=== PATIENT | female | born 1955 | race Caucasian/White ===

== ENCOUNTER 2023-11-26 11:23 | Inpatient (IN) | payer BC ==
[~2023-11-26] VITALS: Ht 170.2 cm; Wt 67.3 kg
[2023-11-26 13:01] LABS: BASOPHILS % (AUTO) 0.3 % (0-1); EOSINOPHILS # (AUTO) 0.1 X10'3 (0-0.9); EOSINOPHILS % (AUTO) 1.2 % (0-6); HEMATOCRIT 27.6 % (35.0-45.0); HEMOGLOBIN 9.1 g/dl (12.0-16.0); LYMPHOCYTES # (AUTO) 0.6 X10'3 (1.1-4.8); LYMPHOCYTES % (AUTO) 10.2 % (21-51); MEAN CORPUSCULAR HEMOGLOBIN 33.1 PG (27.0-31.0); MEAN CORPUSCULAR HGB CONC 32.9 g/dL (33.0-36.5); MEAN CORPUSCULAR VOLUME 100.7 FL (78-98); MEAN PLATELET VOLUME 8.3 FL (7.4-10.4); MONOCYTES % (AUTO) 15.9 % (2-12); NEUTROPHILS # (AUTO) 4.6 X10'3 (1.8-7.7); NEUTROPHILS % (AUTO) 72.4 % (42-75); PLATELET COUNT 257 X10'3 (140-440); RED BLOOD COUNT 2.75 X10'6 (4.20-5.60); RED CELL DISTRIBUTION WIDTH 17.3 % (11.5-14.5); WHITE BLOOD COUNT 6.3 X10'3 (4.5-11.0)
[2023-11-26 13:21] LABS: ALANINE AMINOTRANSFERASE < 6 U/L (12-78); ALBUMIN 2.7 G/DL (3.4-5.0); ALBUMIN/GLOBULIN RATIO 0.7 (1.1-1.5); ALKALINE PHOSPHATASE 67 IU/L (46-116); ANION GAP 10 (8-16); ASPARTATE AMINO TRANSFERASE 17 U/L (10-37); BILIRUBIN,TOTAL 0.6 MG/DL (0.1-1.0); BLOOD UREA NITROGEN 11 MG/DL (7-18); BUN/CREATININE RATIO 28.2 (10.0-20.0); CALCIUM 8.3 MG/DL (8.5-10.1); CHLORIDE 107 MMOL/L (99-107); CREATININE 0.39 MG/DL (0.40-0.90); GLUCOSE 91 MG/DL (70-104); POTASSIUM 3.3 MMOL/L (3.5-5.1); SODIUM 141 MMOL/L (135-145); TOTAL CARBON DIOXIDE 24.1 MMOL/L (24-32); TOTAL PROTEIN 6.6 G/DL (6.4-8.2); eCRCL 132 ML/MIN; eGFR > 90 ML/MIN
[2023-11-26] MEDS: piperacillin/tazo 3.375gm/50ml 50 ML IV ONE (13:41)
[2023-11-26] MEDS: potassium Cl 20 mEq SR tablet PO STA (13:42)
[2023-11-26] MEDS: morphine 4 MG/ML inj SYRINge IV ONE ×2 (15:39→21:09)
[2023-11-26] MEDS: ondansetron/PF 4mg/2ml inj IV ONE (15:40)
[2023-11-26] MEDS ORDERED: magnesium 4gm in 100ml NS 100 ML IV PRN (15:50)
[2023-11-26] MEDS ORDERED: mag hydrox/Alum hydrox/simeth 30ml oral suspension PO PRN (15:50)
[2023-11-26] MEDS ORDERED: acetaminophen 325mg tablet PO PRN ×2 (15:50)
[2023-11-26] MEDS ORDERED: ondansetron/PF 4mg/2ml inj IV PRN (15:50)
[2023-11-26] MEDS ORDERED: potassium Cl 40MEQ/1/2NS 520ml 520 ML IV PRN (15:50)
[2023-11-26] MEDS ORDERED: bisacodyl 10mg suppository rectal RC PRN (15:50)
[2023-11-26] MEDS ORDERED: potassium Cl 20 mEq SR tablet PO PRN (15:50)
[2023-11-26] MEDS ORDERED: magnesium 2GM in 50ml NS 50 ML IV PRN (15:50)
[2023-11-26] MEDS: CefTRIAXone/D5W-Rocephin 1gm 50 ML IV ONE (16:54)
[2023-11-26] MEDS: normal saline 1000ml 1,000 ML IV SCH (16:54)
[2023-11-26 17:10] LABS: ANISOCYTOSIS 1+; PLATELET ESTIMATE NORMAL; POLYCHROMASIA 1+; TOTAL CELLS COUNTED 100
[2023-11-26] MEDS: lactulose 20gm/30ml cup PO SCH (20:00)
[2023-11-26] MEDS: docusate sod 100mg capsule PO SCH (20:00)
[2023-11-26] MEDS: HYDROcodone/acetaminophen 10/325mg tab PO PRN (20:00)
[2023-11-26] MEDS: K and/or MAG REPLACEMENT MC SCH (20:20)
[2023-11-26] MEDS: potassium Cl 20 mEq SR tablet PO PRN (21:03)
[2023-11-26] MEDS: LORazepam 2 mg/ml vial IV ONE (21:07)
[2023-11-26] MEDS: haloperidol lactate 5mg/ml inj IM ONE (23:10)
[2023-11-26] MEDS: ziprasidone IM 20mg inj **IM only IM PRN (23:42)
[2023-11-27] MEDS: haloperidol lactate 5mg/ml inj IM ONE (01:58)
[2023-11-27] MEDS: mineral oil 133ml enema RC SCH (08:00)
[2023-11-27] MEDS: CefTRIAXone/D5W-Rocephin 1gm 50 ML IV SCH (08:14)
[2023-11-27 08:26] LABS: BASOPHILS % (AUTO) 0.5 % (0-1); EOSINOPHILS # (AUTO) 0.1 X10'3 (0-0.9); EOSINOPHILS % (AUTO) 1.8 % (0-6); HEMATOCRIT 24.9 % (35.0-45.0); HEMOGLOBIN 8.2 g/dl (12.0-16.0); LYMPHOCYTES # (AUTO) 0.6 X10'3 (1.1-4.8); LYMPHOCYTES % (AUTO) 13.4 % (21-51); MEAN CORPUSCULAR HGB CONC 32.9 g/dL (33.0-36.5); MEAN CORPUSCULAR VOLUME 100.4 FL (78-98); MEAN PLATELET VOLUME 7.7 FL (7.4-10.4); MONOCYTES # (AUTO) 0.8 X10'3 (0-0.9); NEUTROPHILS % (AUTO) 67.3 % (42-75); PLATELET COUNT 262 X10'3 (140-440); RED BLOOD COUNT 2.48 X10'6 (4.20-5.60); RED CELL DISTRIBUTION WIDTH 16.9 % (11.5-14.5); WHITE BLOOD COUNT 4.4 X10'3 (4.5-11.0)
[2023-11-27 08:44] LABS: ALANINE AMINOTRANSFERASE 12 U/L (12-78); ALBUMIN 2.3 G/DL (3.4-5.0); ALBUMIN/GLOBULIN RATIO 0.7 (1.1-1.5); ALKALINE PHOSPHATASE 56 IU/L (46-116); ANION GAP 8 (8-16); ASPARTATE AMINO TRANSFERASE 22 U/L (10-37); BILIRUBIN,TOTAL 0.5 MG/DL (0.1-1.0); BLOOD UREA NITROGEN 7 MG/DL (7-18); BUN/CREATININE RATIO 22.6 (10.0-20.0); CALCIUM 8.1 MG/DL (8.5-10.1); CHLORIDE 109 MMOL/L (99-107); CREATININE 0.31 MG/DL (0.40-0.90); GLUCOSE 87 MG/DL (70-104); MAGNESIUM 1.9 MG/DL (1.5-2.4); POTASSIUM 3.4 MMOL/L (3.5-5.1); SODIUM 143 MMOL/L (135-145); TOTAL CARBON DIOXIDE 25.6 MMOL/L (24-32); TOTAL PROTEIN 5.8 G/DL (6.4-8.2); eCRCL 167 ML/MIN; eGFR > 90 ML/MIN
[2023-11-27 10:58] LABS: TOTAL CELLS COUNTED 100
[2023-11-27 10:59] LABS: ANISOCYTOSIS 1+; PLATELET ESTIMATE NORMAL; POLYCHROMASIA 1+
[2023-11-27] MEDS ORDERED: TIZA4CAP6 PO (12:30)
[2023-11-27] MEDS ORDERED: HYDR-3964 PO (12:30)
[2023-11-27] MEDS ORDERED: MSC30T PO (12:30)
[2023-11-27] MEDS ORDERED: LEVE750T PO (12:30)
[2023-11-27] MEDS ORDERED: CLOP75TA34 PO (12:30)
[2023-11-27] MEDS ORDERED: TRAZ300T2 PO (12:30)
[2023-11-27] MEDS ORDERED: NYST15CR36 TOP (12:30)
[2023-11-27] MEDS ORDERED: ONDA-103 PO (12:30)
[2023-11-27] MEDS ORDERED: CLON0.1T2 PO (12:30)
[2023-11-27] MEDS ORDERED: LIDO30CR TOP (12:30)
[2023-11-27] MEDS ORDERED: SERT-434 PO (12:30)
[2023-11-27] MEDS ORDERED: OLAN5TAB29 PO (12:30)
[2023-11-27] MEDS ORDERED: PHE12.5R RC (12:30)
[2023-11-27] MEDS ORDERED: AZEL137S4 BOTHNARES (12:30)
[2023-11-27] MEDS ORDERED: AMIT100T61 PO (12:30)
[2023-11-27] MEDS ORDERED: HYDR-3972 PO (12:30)
[2023-11-27] MEDS ORDERED: ESTR0.5T28 PO (12:30)
[2023-11-27] MEDS ORDERED: TEMA30CA PO (12:30)
[2023-11-27] MEDS ORDERED: ALEN70TA80 PO (12:30)
[2023-11-27] MEDS ORDERED: AMLO5TAB16 PO (12:30)
[2023-11-27] MEDS ORDERED: POTA-188 PO (12:30)
[2023-11-27] MEDS: LORazepam 0.5 MG tablet PO PRN (16:11)
[2023-11-27 18:00] VITALS: PULSE 103; RESP 16; TEMP 97.4; O2SAT 100
[2023-11-27] MEDS ORDERED: HYDROmorphone inj. 0.5 MG/0.5 ML DISP.SYRIN IV PRN (18:25)
[2023-11-27] MEDS ORDERED: mineral oil 133ml enema RC PRN (18:35)
[2023-11-27] MEDS ORDERED: non-formulary drug (Alendronate Sodium 1 TAB) PO SCH (18:40)
[2023-11-27 20:00] VITALS: RESP 18; O2SAT 96
[2023-11-27] MEDS: HYDROmorphone 1 mg/ml syringe IV PRN (20:07)
[2023-11-27] MEDS: temazepam 15mg capsule PO SCH (21:02)
[2023-11-27] MEDS: cloNIDine 0.1 mg tablet PO SCH (21:04)
[2023-11-27] MEDS: levetiracetam 250mg tablet PO SCH (21:04)
[2023-11-27] MEDS: traZODone 150mg tablet PO SCH (21:04)
[2023-11-27] MEDS: OLANZapine 5mg rapidly disint. tablet PO SCH (21:54)
[2023-11-27 22:00] VITALS: BP 159/83; PULSE 115; RESP 17; TEMP 98.3; O2SAT 99
[2023-11-28] MEDS: morphine ER 15mg tablet PO SCH
[2023-11-28 07:13] LABS: BASOPHILS % (AUTO) 0.4 % (0-1); EOSINOPHILS # (AUTO) 0.1 X10'3 (0-0.9); EOSINOPHILS % (AUTO) 1.5 % (0-6); HEMATOCRIT 28.7 % (35.0-45.0); HEMOGLOBIN 9.6 g/dl (12.0-16.0); LYMPHOCYTES # (AUTO) 0.6 X10'3 (1.1-4.8); LYMPHOCYTES % (AUTO) 10.6 % (21-51); MEAN CORPUSCULAR HEMOGLOBIN 33.4 PG (27.0-31.0); MEAN CORPUSCULAR HGB CONC 33.3 g/dL (33.0-36.5); MEAN CORPUSCULAR VOLUME 100.3 FL (78-98); MEAN PLATELET VOLUME 7.8 FL (7.4-10.4); MONOCYTES # (AUTO) 0.8 X10'3 (0-0.9); NEUTROPHILS # (AUTO) 3.7 X10'3 (1.8-7.7); NEUTROPHILS % (AUTO) 71.5 % (42-75); PLATELET COUNT 359 X10'3 (140-440); RED BLOOD COUNT 2.86 X10'6 (4.20-5.60); WHITE BLOOD COUNT 5.2 X10'3 (4.5-11.0)
[2023-11-28 07:25] LABS: ALANINE AMINOTRANSFERASE 13 U/L (12-78); ALBUMIN/GLOBULIN RATIO 0.8 (1.1-1.5); ALKALINE PHOSPHATASE 69 IU/L (46-116); ANION GAP 9 (8-16); ASPARTATE AMINO TRANSFERASE 25 U/L (10-37); BILIRUBIN,TOTAL 0.7 MG/DL (0.1-1.0); BLOOD UREA NITROGEN 10 MG/DL (7-18); BUN/CREATININE RATIO 23.8 (10.0-20.0); CALCIUM 9.1 MG/DL (8.5-10.1); CHLORIDE 106 MMOL/L (99-107); CREATININE 0.42 MG/DL (0.40-0.90); GLUCOSE 91 MG/DL (70-104); MAGNESIUM 1.9 MG/DL (1.5-2.4); POTASSIUM 3.3 MMOL/L (3.5-5.1); SODIUM 141 MMOL/L (135-145); eCRCL 123 ML/MIN; eGFR > 90 ML/MIN
[2023-11-28] MEDS: amitriptyline 50mg tablet PO SCH (08:43)
[2023-11-28] MEDS: clopidogrel 75mg tablet PO SCH (08:44)
[2023-11-28] MEDS: amLODIPine 5mg tablet PO SCH (08:44)
[2023-11-28] MEDS: sertraline 50mg tablet PO SCH (08:45)
[2023-11-28 08:56] VITALS: BP 170/78; PULSE 115; RESP 16; TEMP 98.2; O2SAT 98
[2023-11-28 10:00] VITALS: BP 134/84; PULSE 72; RESP 16; TEMP 97.7; O2SAT 95
[2023-11-28] MEDS: tizanidine 4mg tablet PO PRN (11:14)
[2023-11-28] MEDS: pneumococcal 23-VAL P-sac vacc 25 mcg/0.5ml vial IMVAC ONE (12:00)
[2023-11-28] MEDS ORDERED: ondansetron 4mg rapidly disintigrating tab PO PRN (14:00)
[2023-11-28 18:00] VITALS: BP 145/80; PULSE 97; RESP 16; TEMP 97.7; O2SAT 100
[2023-11-28] MEDS: mineral oil 133ml enema RC ONE (19:44)
[2023-11-28 20:00] VITALS: RESP 18; O2SAT 96
[2023-11-28 22:00] VITALS: BP 158/87; PULSE 97; RESP 16; TEMP 98.1; O2SAT 100
[2023-11-28] MEDS: OLANZAPINE 5 MG TABLET PO SCH (22:28)
[2023-11-29] VITALS (7 sets, daily range): BP systolic 135–162; BP diastolic 58–86; PULSE 60–109; RESP 16–18; TEMP 97.7–98.4; O2SAT 96–99
[2023-11-29 06:44] LABS: BASOPHILS % (AUTO) 0.7 % (0-1); EOSINOPHILS # (AUTO) 0.2 X10'3 (0-0.9); EOSINOPHILS % (AUTO) 4.2 % (0-6); HEMATOCRIT 26.9 % (35.0-45.0); HEMOGLOBIN 8.9 g/dl (12.0-16.0); LYMPHOCYTES # (AUTO) 0.9 X10'3 (1.1-4.8); LYMPHOCYTES % (AUTO) 22.7 % (21-51); MEAN CORPUSCULAR HEMOGLOBIN 33.4 PG (27.0-31.0); MEAN CORPUSCULAR HGB CONC 32.9 g/dL (33.0-36.5); MEAN CORPUSCULAR VOLUME 101.4 FL (78-98); MEAN PLATELET VOLUME 7.4 FL (7.4-10.4); MONOCYTES # (AUTO) 0.6 X10'3 (0-0.9); MONOCYTES % (AUTO) 14.6 % (2-12); NEUTROPHILS # (AUTO) 2.3 X10'3 (1.8-7.7); NEUTROPHILS % (AUTO) 57.8 % (42-75); PLATELET COUNT 321 X10'3 (140-440); RED BLOOD COUNT 2.65 X10'6 (4.20-5.60); RED CELL DISTRIBUTION WIDTH 17.4 % (11.5-14.5); WHITE BLOOD COUNT 3.9 X10'3 (4.5-11.0)
[2023-11-29 06:56] LABS: ALANINE AMINOTRANSFERASE 14 U/L (12-78); ALBUMIN 2.5 G/DL (3.4-5.0); ALBUMIN/GLOBULIN RATIO 0.7 (1.1-1.5); ALKALINE PHOSPHATASE 62 IU/L (46-116); ANION GAP 7 (8-16); ASPARTATE AMINO TRANSFERASE 19 U/L (10-37); BILIRUBIN,TOTAL 0.5 MG/DL (0.1-1.0); BLOOD UREA NITROGEN 13 MG/DL (7-18); BUN/CREATININE RATIO 33.3 (10.0-20.0); CALCIUM 8.1 MG/DL (8.5-10.1); CHLORIDE 113 MMOL/L (99-107); CREATININE 0.39 MG/DL (0.40-0.90); GLUCOSE 90 MG/DL (70-104); MAGNESIUM 1.8 MG/DL (1.5-2.4); POTASSIUM 3.8 MMOL/L (3.5-5.1); SODIUM 147 MMOL/L (135-145); TOTAL CARBON DIOXIDE 27.4 MMOL/L (24-32); TOTAL PROTEIN 5.9 G/DL (6.4-8.2); eCRCL 132 ML/MIN; eGFR > 90 ML/MIN
[2023-11-29] MEDS: bisacodyl 10mg suppository rectal RC STA (09:29)
[2023-11-30 04:38] LABS: BASOPHILS % (AUTO) 0.7 % (0-1); EOSINOPHILS # (AUTO) 0.2 X10'3 (0-0.9); HEMATOCRIT 27.4 % (35.0-45.0); HEMOGLOBIN 9.1 g/dl (12.0-16.0); LYMPHOCYTES % (AUTO) 19.8 % (21-51); MEAN CORPUSCULAR HEMOGLOBIN 33.2 PG (27.0-31.0); MEAN CORPUSCULAR HGB CONC 33.1 g/dL (33.0-36.5); MEAN CORPUSCULAR VOLUME 100.1 FL (78-98); MEAN PLATELET VOLUME 7.4 FL (7.4-10.4); MONOCYTES # (AUTO) 0.7 X10'3 (0-0.9); MONOCYTES % (AUTO) 14.1 % (2-12); NEUTROPHILS % (AUTO) 61.4 % (42-75); PLATELET COUNT 354 X10'3 (140-440); RED BLOOD COUNT 2.73 X10'6 (4.20-5.60); RED CELL DISTRIBUTION WIDTH 16.9 % (11.5-14.5); WHITE BLOOD COUNT 4.9 X10'3 (4.5-11.0)
[2023-11-30 04:46] LABS: ALANINE AMINOTRANSFERASE 12 U/L (12-78); ALBUMIN 2.7 G/DL (3.4-5.0); ALBUMIN/GLOBULIN RATIO 0.8 (1.1-1.5); ALKALINE PHOSPHATASE 64 IU/L (46-116); ANION GAP 8 (8-16); ASPARTATE AMINO TRANSFERASE 16 U/L (10-37); BILIRUBIN,TOTAL 0.5 MG/DL (0.1-1.0); BLOOD UREA NITROGEN 8 MG/DL (7-18); BUN/CREATININE RATIO 17.4 (10.0-20.0); CHLORIDE 108 MMOL/L (99-107); CREATININE 0.46 MG/DL (0.40-0.90); GLUCOSE 87 MG/DL (70-104); POTASSIUM 3.5 MMOL/L (3.5-5.1); SODIUM 142 MMOL/L (135-145); TOTAL CARBON DIOXIDE 25.9 MMOL/L (24-32); TOTAL PROTEIN 6.2 G/DL (6.4-8.2); eCRCL 112 ML/MIN; eGFR > 90 ML/MIN
[2023-11-30 08:00] VITALS: RESP 16; O2SAT 100
[2023-11-30 09:42] VITALS: BP 149/71; PULSE 106; RESP 18; TEMP 97.8; O2SAT 98
[2023-11-30 10:13] VITALS: RESP 18; O2SAT 98
[2023-11-30] MEDS: HYDROcodone/acetaminophen 5mg/325mg tablet PO PRN (17:08)
[2023-11-30 18:00] VITALS: BP 135/64; PULSE 95; RESP 13; TEMP 98; O2SAT 97
[2023-11-30 20:00] VITALS: RESP 13; O2SAT 97
[2023-11-30 22:00] VITALS: BP 116/63; PULSE 104; RESP 20; TEMP 98.7; O2SAT 98
[2023-12-01 05:47] LABS: BASOPHILS # (AUTO) 0.1 X10'3 (0-0.2); BASOPHILS % (AUTO) 1.1 % (0-1); EOSINOPHILS # (AUTO) 0.2 X10'3 (0-0.9); EOSINOPHILS % (AUTO) 3.8 % (0-6); HEMATOCRIT 26.7 % (35.0-45.0); HEMOGLOBIN 8.8 g/dl (12.0-16.0); LYMPHOCYTES # (AUTO) 1.2 X10'3 (1.1-4.8); LYMPHOCYTES % (AUTO) 21.3 % (21-51); MEAN CORPUSCULAR HEMOGLOBIN 33.2 PG (27.0-31.0); MEAN CORPUSCULAR HGB CONC 33.1 g/dL (33.0-36.5); MEAN CORPUSCULAR VOLUME 100.2 FL (78-98); MEAN PLATELET VOLUME 7.5 FL (7.4-10.4); MONOCYTES # (AUTO) 0.7 X10'3 (0-0.9); MONOCYTES % (AUTO) 12.2 % (2-12); NEUTROPHILS # (AUTO) 3.3 X10'3 (1.8-7.7); NEUTROPHILS % (AUTO) 61.6 % (42-75); PLATELET COUNT 367 X10'3 (140-440); RED BLOOD COUNT 2.66 X10'6 (4.20-5.60); RED CELL DISTRIBUTION WIDTH 17.1 % (11.5-14.5); WHITE BLOOD COUNT 5.4 X10'3 (4.5-11.0)
[2023-12-01 05:56] LABS: ALANINE AMINOTRANSFERASE 12 U/L (12-78); ALBUMIN 2.5 G/DL (3.4-5.0); ALBUMIN/GLOBULIN RATIO 0.7 (1.1-1.5); ALKALINE PHOSPHATASE 73 IU/L (46-116); ANION GAP 7 (8-16); ASPARTATE AMINO TRANSFERASE 13 U/L (10-37); BILIRUBIN,TOTAL 0.3 MG/DL (0.1-1.0); BLOOD UREA NITROGEN 16 MG/DL (7-18); CALCIUM 9.1 MG/DL (8.5-10.1); CHLORIDE 105 MMOL/L (99-107); GLUCOSE 90 MG/DL (70-104); MAGNESIUM 1.9 MG/DL (1.5-2.4); POTASSIUM 3.7 MMOL/L (3.5-5.1); SODIUM 140 MMOL/L (135-145); TOTAL CARBON DIOXIDE 28.5 MMOL/L (24-32); eCRCL 103 ML/MIN; eGFR > 90 ML/MIN
[2023-12-01 06:00] VITALS: BP 152/66; PULSE 100; RESP 16; TEMP 98.2; O2SAT 95
[2023-12-01 08:00] VITALS: RESP 16; O2SAT 95
[2023-12-01 10:00] VITALS: BP 121/64; PULSE 104; RESP 14; TEMP 99; O2SAT 96
[2023-12-01] MEDS ORDERED: LIDOcaine/PRILOcaine 5gm cream TP PRN (12:45)
[2023-12-01 18:00] VITALS: BP 142/64; PULSE 98; RESP 16; TEMP 98.8; O2SAT 98
[2023-12-01 20:00] VITALS: RESP 16; O2SAT 98
[2023-12-01 22:00] VITALS: BP 126/60; PULSE 92; RESP 18; TEMP 97.3; O2SAT 98
[2023-12-02 06:00] VITALS: BP 161/77; PULSE 93; RESP 18; TEMP 97.5; O2SAT 97
[2023-12-02 08:00] VITALS: RESP 18; O2SAT 97
[2023-12-02 10:09] LABS: BASOPHILS # (AUTO) 0.1 X10'3 (0-0.2); BASOPHILS % (AUTO) 0.9 % (0-1); EOSINOPHILS # (AUTO) 0.2 X10'3 (0-0.9); EOSINOPHILS % (AUTO) 2.8 % (0-6); HEMATOCRIT 28.9 % (35.0-45.0); HEMOGLOBIN 9.3 g/dl (12.0-16.0); LYMPHOCYTES # (AUTO) 0.8 X10'3 (1.1-4.8); LYMPHOCYTES % (AUTO) 14.9 % (21-51); MEAN CORPUSCULAR HEMOGLOBIN 32.4 PG (27.0-31.0); MEAN CORPUSCULAR HGB CONC 32.3 g/dL (33.0-36.5); MEAN CORPUSCULAR VOLUME 100.3 FL (78-98); MEAN PLATELET VOLUME 7.1 FL (7.4-10.4); MONOCYTES # (AUTO) 0.5 X10'3 (0-0.9); MONOCYTES % (AUTO) 8.9 % (2-12); NEUTROPHILS % (AUTO) 72.5 % (42-75); PLATELET COUNT 391 X10'3 (140-440); RED BLOOD COUNT 2.88 X10'6 (4.20-5.60); RED CELL DISTRIBUTION WIDTH 17.4 % (11.5-14.5); WHITE BLOOD COUNT 5.5 X10'3 (4.5-11.0)
[2023-12-02 10:23] LABS: ALANINE AMINOTRANSFERASE 12 U/L (12-78); ALBUMIN 2.8 G/DL (3.4-5.0); ALBUMIN/GLOBULIN RATIO 0.8 (1.1-1.5); ALKALINE PHOSPHATASE 80 IU/L (46-116); ASPARTATE AMINO TRANSFERASE 13 U/L (10-37); BILIRUBIN,TOTAL 0.3 MG/DL (0.1-1.0); BLOOD UREA NITROGEN 13 MG/DL (7-18); BUN/CREATININE RATIO 24.1 (10.0-20.0); CALCIUM 8.8 MG/DL (8.5-10.1); CREATININE 0.54 MG/DL (0.40-0.90); GLUCOSE 169 MG/DL (70-104); POTASSIUM 3.3 MMOL/L (3.5-5.1); SODIUM 145 MMOL/L (135-145); TOTAL CARBON DIOXIDE 29.3 MMOL/L (24-32); TOTAL PROTEIN 6.5 G/DL (6.4-8.2); eCRCL 96 ML/MIN; eGFR > 90 ML/MIN
[2023-12-02 10:27] LABS: ANION GAP 10 (8-16); CHLORIDE 106 MMOL/L (99-107)
[2023-12-02 12:00] VITALS: BP 135/55; PULSE 91; RESP 21; TEMP 97.3; O2SAT 98
[2023-12-02 18:00] VITALS: BP 151/83; PULSE 97; RESP 17; TEMP 97.1; O2SAT 99
[2023-12-02] MEDS: enoxaparin 40mg/0.4ml syringe SUBCUT SCH (19:23)
[2023-12-02 20:00] VITALS: RESP 20; O2SAT 96
[2023-12-02 22:00] VITALS: BP 126/52; PULSE 92; RESP 16; TEMP 97.5; O2SAT 99
[2023-12-02 22:32] LABS: BILIRUBIN,URINE NEGATIVE (Neg); CLARITY,URINE CLOUDY (Clear); COLOR,URINE YELLOW (Yellow); GLUCOSE, URINE NEGATIVE (Neg); KETONES,URINE NEGATIVE (Neg); LEUKOCYTE ESTERASE ,URINE NEGATIVE (Neg); NITRITES, URINE NEGATIVE (Neg); OCCULT BLOOD,URINE NEGATIVE (Neg); PH,URINE 7.5 (4.8-8.0); PROTEIN,URINE NEGATIVE (Neg); UROBILINOGEN,URINE 0.2 E.U/dL (0.2-1.0)
[2023-12-02 22:34] LABS: UA COLLECTION TYPE NON-SPECIFIED
[2023-12-02 22:40] LABS: SQUAMOUS EPITHELIAL CELL,UR MANY /LPF (FEW)
[2023-12-02 22:41] LABS: BACTERIA,URINE FEW /HPF (Neg)
[2023-12-02 22:42] LABS: RBC,URINE NONE SEEN /HPF (0-2); WBC,URINE 0-4 /HPF (0-4)
[2023-12-02 22:43] LABS: AMORPHOUS PHOSPHATES 1+
[2023-12-03] VITALS (7 sets, daily range): BP systolic 112–154; BP diastolic 56–67; PULSE 84–100; RESP 16–20; TEMP 98–98.5; O2SAT 97–100
[2023-12-03 06:46] LABS: BASOPHILS # (AUTO) 0.1 X10'3 (0-0.2); BASOPHILS % (AUTO) 1.3 % (0-1); EOSINOPHILS # (AUTO) 0.1 X10'3 (0-0.9); EOSINOPHILS % (AUTO) 3.4 % (0-6); HEMATOCRIT 27.1 % (35.0-45.0); HEMOGLOBIN 8.9 g/dl (12.0-16.0); LYMPHOCYTES # (AUTO) 1.1 X10'3 (1.1-4.8); LYMPHOCYTES % (AUTO) 25.8 % (21-51); MEAN CORPUSCULAR HEMOGLOBIN 32.8 PG (27.0-31.0); MEAN CORPUSCULAR HGB CONC 32.7 g/dL (33.0-36.5); MEAN CORPUSCULAR VOLUME 100.5 FL (78-98); MEAN PLATELET VOLUME 7.1 FL (7.4-10.4); MONOCYTES # (AUTO) 0.5 X10'3 (0-0.9); MONOCYTES % (AUTO) 11.7 % (2-12); NEUTROPHILS # (AUTO) 2.4 X10'3 (1.8-7.7); NEUTROPHILS % (AUTO) 57.8 % (42-75); PLATELET COUNT 347 X10'3 (140-440); WHITE BLOOD COUNT 4.2 X10'3 (4.5-11.0)
[2023-12-03 07:13] LABS: ALANINE AMINOTRANSFERASE 12 U/L (12-78); ALBUMIN 2.7 G/DL (3.4-5.0); ALBUMIN/GLOBULIN RATIO 0.8 (1.1-1.5); ALKALINE PHOSPHATASE 97 IU/L (46-116); ANION GAP 8 (8-16); ASPARTATE AMINO TRANSFERASE 14 U/L (10-37); BILIRUBIN,TOTAL 0.3 MG/DL (0.1-1.0); BLOOD UREA NITROGEN 16 MG/DL (7-18); BUN/CREATININE RATIO 36.4 (10.0-20.0); CALCIUM 9.2 MG/DL (8.5-10.1); CHLORIDE 108 MMOL/L (99-107); CREATININE 0.44 MG/DL (0.40-0.90); GLUCOSE 81 MG/DL (70-104); SODIUM 143 MMOL/L (135-145); TOTAL CARBON DIOXIDE 27.3 MMOL/L (24-32); TOTAL PROTEIN 6.3 G/DL (6.4-8.2); eCRCL 117 ML/MIN; eGFR > 90 ML/MIN
[2023-12-04] VITALS (21 sets, daily range): BP systolic 98–149; BP diastolic 52–98; PULSE 59–100; RESP 12–21; TEMP 98–98.8; O2SAT 94–98
[2023-12-04 06:15] LABS: BASOPHILS # (AUTO) 0.1 X10'3 (0-0.2); BASOPHILS % (AUTO) 1.5 % (0-1); EOSINOPHILS # (AUTO) 0.1 X10'3 (0-0.9); EOSINOPHILS % (AUTO) 3.2 % (0-6); HEMATOCRIT 32.1 % (35.0-45.0); HEMOGLOBIN 10.4 g/dl (12.0-16.0); LYMPHOCYTES % (AUTO) 24.4 % (21-51); MEAN CORPUSCULAR HEMOGLOBIN 32.6 PG (27.0-31.0); MEAN CORPUSCULAR HGB CONC 32.5 g/dL (33.0-36.5); MEAN CORPUSCULAR VOLUME 100.3 FL (78-98); MEAN PLATELET VOLUME 7.2 FL (7.4-10.4); MONOCYTES # (AUTO) 0.4 X10'3 (0-0.9); MONOCYTES % (AUTO) 10.8 % (2-12); NEUTROPHILS # (AUTO) 2.4 X10'3 (1.8-7.7); NEUTROPHILS % (AUTO) 60.1 % (42-75); PLATELET COUNT 371 X10'3 (140-440); RED CELL DISTRIBUTION WIDTH 16.9 % (11.5-14.5); WHITE BLOOD COUNT 3.9 X10'3 (4.5-11.0)
[2023-12-04 06:27] LABS: APTT 32 SECONDS (22-32); PROTHROMBIN TIME 9.9 SECONDS (9.0-12.0)
[2023-12-04 06:55] LABS: ALANINE AMINOTRANSFERASE 11 U/L (12-78); ALBUMIN 3.1 G/DL (3.4-5.0); ALBUMIN/GLOBULIN RATIO 0.8 (1.1-1.5); ALKALINE PHOSPHATASE 123 IU/L (46-116); ANION GAP 8 (8-16); ASPARTATE AMINO TRANSFERASE 14 U/L (10-37); BILIRUBIN,TOTAL 0.3 MG/DL (0.1-1.0); BLOOD UREA NITROGEN 17 MG/DL (7-18); BUN/CREATININE RATIO 35.4 (10.0-20.0); CALCIUM 9.6 MG/DL (8.5-10.1); CHLORIDE 106 MMOL/L (99-107); CREATININE 0.48 MG/DL (0.40-0.90); GLUCOSE 90 MG/DL (70-104); SODIUM 143 MMOL/L (135-145); TOTAL CARBON DIOXIDE 29.2 MMOL/L (24-32); TOTAL PROTEIN 7.1 G/DL (6.4-8.2); eCRCL 108 ML/MIN; eGFR > 90 ML/MIN
[2023-12-04 07:00] LABS: INR 0.9 INR
[2023-12-04] MEDS ORDERED: vancomycin 1,000mg inj ONE (14:24)
[2023-12-04] MEDS ORDERED: sevoflurane 250ml liquid IH ONE (14:42)
[2023-12-04] MEDS ORDERED: LIDOcaine 2% (20mg/ml) 5ml vial ONE (14:42)
[2023-12-04] MEDS ORDERED: morphine 2 MG/ML inj. syringe IV PRN (14:45)
[2023-12-04] MEDS ORDERED: labetalol 20mg/4ml (5mg/ml) syringe IV PRN (14:45)
[2023-12-04] MEDS: ringers solution, lacted 1,000 ML IV SCH (14:45)
[2023-12-04] MEDS ORDERED: meperidine/PF 25mg/ml syringe IV PRN ×3 (14:45)
[2023-12-04] MEDS ORDERED: morphine 4 MG/ML inj SYRINge IV PRN (14:45)
[2023-12-04] MEDS ORDERED: proCHLORperazine 10 MG/2 ml inj IV PRN (14:45)
[2023-12-04] MEDS ORDERED: ondansetron/PF 4mg/2ml inj IV PRN (14:45)
[2023-12-04] MEDS ORDERED: enalaprilat dihydrate 2.5mg/2ml vial IV PRN (14:45)
[2023-12-04] MEDS ORDERED: fentaNYL/PF 50MCG/1 ML 2ML syringe ONE (14:57)
[2023-12-04] MEDS ORDERED: midazolam 1 mg/ML 2ml injection ONE (14:57)
[2023-12-04] MEDS ORDERED: ceFAZolin 1000mg inj ONE ×2 (15:32)
[2023-12-04] MEDS ORDERED: propofol inj 20 ML IV ONE (15:32)
[2023-12-04] MEDS ORDERED: dexamethasone sod phosphate 4mg/ml inj. ONE (16:17)
[2023-12-04] MEDS ORDERED: ondansetron/PF 4mg/2ml inj ONE (16:18)
[2023-12-04] MEDS ORDERED: HYDROmorphone 1 mg/ml syringe IV PRN (19:15)
[2023-12-04] MEDS: traZODone 150mg tablet PO SCH (20:09)
[2023-12-04] MEDS: morphine ER 15mg tablet PO SCH (20:09)
[2023-12-04] MEDS: cefazolin 2gm/D5W 100mL 100 ML IV SCH (23:44)
[2023-12-05] MEDS ORDERED: CEFAZOLIN 2 GM injection IM SCH
[2023-12-05 02:00] VITALS: BP 137/73; PULSE 100; RESP 17; TEMP 98.1; O2SAT 95
[2023-12-05] MEDS: HYDROmorphone inj. 0.5 MG/0.5 ML DISP.SYRIN IV PRN (02:42)
[2023-12-05 06:00] VITALS: BP 141/70; PULSE 92; RESP 16; TEMP 98.1; O2SAT 95
[2023-12-05 08:00] VITALS: RESP 16; O2SAT 95
[2023-12-05] MEDS ORDERED: sodium chloride 0.45% 1,000 ML IV SCH (08:25)
[2023-12-05] MEDS: clopidogrel 75mg tablet PO SCH (08:34)
[2023-12-05 08:38] VITALS: BP_SYST 172; PULSE 106
[2023-12-05 08:53] LABS: ALBUMIN 2.9 G/DL (3.4-5.0); ALBUMIN/GLOBULIN RATIO 0.9 (1.1-1.5); ALKALINE PHOSPHATASE 127 IU/L (46-116); ANION GAP 13 (8-16); BILIRUBIN,TOTAL 0.3 MG/DL (0.1-1.0); BLOOD UREA NITROGEN 21 MG/DL (7-18); BUN/CREATININE RATIO 36.8 (10.0-20.0); CALCIUM 8.4 MG/DL (8.5-10.1); CHLORIDE 108 MMOL/L (99-107); CREATININE 0.57 MG/DL (0.40-0.90); GLUCOSE 122 MG/DL (70-104); SODIUM 144 MMOL/L (135-145); TOTAL CARBON DIOXIDE 23.1 MMOL/L (24-32); TOTAL PROTEIN 6.2 G/DL (6.4-8.2); eCRCL 91 ML/MIN; eGFR > 90 ML/MIN
[2023-12-05 09:20] LABS: ALANINE AMINOTRANSFERASE < 6 U/L (12-78); ASPARTATE AMINO TRANSFERASE 27 U/L (10-37); POTASSIUM 4.2 MMOL/L (3.5-5.1)
[2023-12-05] MEDS: magnesium hydroxide 30ml (MOM) UD suspension PO PRN (09:20)
[2023-12-05 09:29] LABS: BASOPHILS % (AUTO) 0.4 % (0-1); EOSINOPHILS % (AUTO) 0.1 % (0-6); HEMOGLOBIN 8.1 g/dl (12.0-16.0); LYMPHOCYTES # (AUTO) 0.7 X10'3 (1.1-4.8); LYMPHOCYTES % (AUTO) 8.6 % (21-51); MEAN CORPUSCULAR HEMOGLOBIN 32.5 PG (27.0-31.0); MEAN CORPUSCULAR HGB CONC 32.3 g/dL (33.0-36.5); MEAN CORPUSCULAR VOLUME 100.6 FL (78-98); MEAN PLATELET VOLUME 7.5 FL (7.4-10.4); MONOCYTES # (AUTO) 0.6 X10'3 (0-0.9); MONOCYTES % (AUTO) 7.3 % (2-12); NEUTROPHILS # (AUTO) 7.3 X10'3 (1.8-7.7); NEUTROPHILS % (AUTO) 83.6 % (42-75); PLATELET COUNT 352 X10'3 (140-440); RED BLOOD COUNT 2.49 X10'6 (4.20-5.60); RED CELL DISTRIBUTION WIDTH 17.2 % (11.5-14.5); WHITE BLOOD COUNT 8.7 X10'3 (4.5-11.0)
== END 2023-12-05 15:05 | disposition home or self-care (01) | DRG 493 ==
LOC: ER 11:23 → ED HOLD 16:03 → ORTHO 4S 11-27 10:15
PROVIDERS: ADMIT Family Medicine; ATTEND Family Medicine
PROC: 3E0T3BZ Introduction of Anesthetic Agent into Peripheral Nerves and Plexi, Percutaneous Approach (ICD-10-PCS; 2023-12-04)
PROC: 3E0T33Z Introduction of Anti-inflammatory into Peripheral Nerves and Plexi, Percutaneous Approach (ICD-10-PCS; 2023-12-04)
PROC: 05H933Z Insertion of Infusion Device into Right Brachial Vein, Percutaneous Approach (ICD-10-PCS; 2023-12-04)
PROC: B54MZZA Ultrasonography of Right Upper Extremity Veins, Guidance (ICD-10-PCS; 2023-12-04)
PROC: 0PSD04Z Reposition Left Humeral Head with Internal Fixation Device, Open Approach (ICD-10-PCS; principal; 2023-12-04 14:42)
DX: S42.232A 3-part fracture of surgical neck of left humerus, initial encounter for closed fracture (principal); F01.52 Vascular dementia, unspecified severity, with psychotic disturbance; N39.0 Urinary tract infection, site not specified; G93.40 Encephalopathy, unspecified; K52.89 Other specified noninfective gastroenteritis and colitis; E87.6 Hypokalemia; D50.0 Iron deficiency anemia secondary to blood loss (chronic); G89.29 Other chronic pain; Z96.611 Presence of right artificial shoulder joint; Z96.653 Presence of artificial knee joint, bilateral; M54.9 Dorsalgia, unspecified; I10 Essential (primary) hypertension; W18.39XA Other fall on same level, initial encounter; Y93.89 Activity, other specified; Y92.89 Other specified places as the place of occurrence of the external cause; Y99.8 Other external cause status; Z86.73 Personal history of transient ischemic attack (TIA), and cerebral infarction without residual deficits; Z87.440 Personal history of urinary (tract) infections; Z82.49 Family history of ischemic heart disease and other diseases of the circulatory system; Z91.148 Patient's other noncompliance with medication regimen for other reason; Z79.899 Other long term (current) drug therapy; Z79.02 Long term (current) use of antithrombotics/antiplatelets
CPT/HCPCS: 36410; 36415; 71045; 73020; 73030; 73200; 74018; 74176; 76000; 76937; 80053; 81001; 82948; 83735; 84145; 85007; 85025; 85610; 85730; 86885; 86900; 86901; 86920; 87081; 93005; 97116; 97161; 97530; 99285; A4565; A6449; C1751; G0378; J0690; J0696; J1100; J1170; J1630; J1650; J2060; J2250; J2270; J2405; J2543; J2704; J3010; J3370; J3486; J3490; J7030; J7120

== ENCOUNTER 2023-12-06 11:05 | Emergency (ER) | payer BC ==
[~2023-12-06] VITALS: Ht 167.6 cm; Wt 57.0 kg
[~2023-12-06 11:05] MED LIST: ALEN70TA80 PO; AMIT100T61 PO; AMLO5TAB16 PO; AZEL137S4 BOTHNARES; CLOP75TA34 PO; ESTR0.5T28 PO; HYDR-3972 PO; LEVE750T PO; LIDO30CR TOP; MSC30T PO; OLAN5TAB29 PO; ONDA-103 PO; POTA-188 PO; SERT-434 PO; TEMA30CA PO; TIZA4CAP6 PO; TRAZ300T2 PO
[2023-12-06 13:59] LABS: BASOPHILS % (AUTO) 0.5 % (0-1); EOSINOPHILS % (AUTO) 0.2 % (0-6); HEMATOCRIT 28.6 % (35.0-45.0); HEMOGLOBIN 9.3 g/dl (12.0-16.0); LYMPHOCYTES # (AUTO) 0.7 X10'3 (1.1-4.8); LYMPHOCYTES % (AUTO) 8.9 % (21-51); MEAN CORPUSCULAR HEMOGLOBIN 32.5 PG (27.0-31.0); MEAN CORPUSCULAR HGB CONC 32.4 g/dL (33.0-36.5); MEAN CORPUSCULAR VOLUME 100.4 FL (78-98); MEAN PLATELET VOLUME 7.3 FL (7.4-10.4); MONOCYTES # (AUTO) 0.7 X10'3 (0-0.9); NEUTROPHILS # (AUTO) 6.7 X10'3 (1.8-7.7); NEUTROPHILS % (AUTO) 82.4 % (42-75); PLATELET COUNT 385 X10'3 (140-440); RED BLOOD COUNT 2.85 X10'6 (4.20-5.60); WHITE BLOOD COUNT 8.2 X10'3 (4.5-11.0)
[2023-12-06 14:15] LABS: ALBUMIN 3.4 G/DL (3.4-5.0); ANION GAP 11 (8-16); BLOOD UREA NITROGEN 10 MG/DL (7-18); CALCIUM 8.5 MG/DL (8.5-10.1); CHLORIDE 105 MMOL/L (99-107); CREATINE KINASE 73 U/L (26-192); ETHANOL < 10 MG/DL (<10); GLUCOSE 106 MG/DL (70-104); POTASSIUM 3.7 MMOL/L (3.5-5.1); SODIUM 139 MMOL/L (135-145); TOTAL CARBON DIOXIDE 22.9 MMOL/L (24-32); eCRCL 119 ML/MIN; eGFR > 90 ML/MIN
[2023-12-06 14:37] LABS: BILIRUBIN,URINE NEGATIVE (Neg); CLARITY,URINE CLEAR (Clear); COLOR,URINE YELLOW (Yellow); GLUCOSE, URINE NEGATIVE (Neg); KETONES,URINE NEGATIVE (Neg); LEUKOCYTE ESTERASE ,URINE NEGATIVE (Neg); NITRITES, URINE NEGATIVE (Neg); OCCULT BLOOD,URINE NEGATIVE (Neg); PH,URINE 6.5 (4.8-8.0); PROTEIN,URINE NEGATIVE (Neg); UROBILINOGEN,URINE 0.2 E.U/dL (0.2-1.0)
[2023-12-06 14:41] LABS: UA COLLECTION TYPE CLN CATCH MIDSTREAM
[2023-12-06 14:50] LABS: URINE AMPHETAMINE SCREEN NEGATIVE (Neg); URINE BARBITUATE SCREEN NEGATIVE (Neg); URINE BENZODIAZEPINES SCREEN POSITIVE (Neg); URINE CANNABINOID SCREEN NEGATIVE (Neg); URINE COCAINE SCREEN NEGATIVE (Neg); URINE METHADONE SCREEN NEGATIVE (Neg); URINE OPIATE SCREEN POSITIVE (Neg); URINE PHENCYCLIDINE SCREEN NEGATIVE (Neg)
[2023-12-06 17:44] VITALS: TEMP 99.1
[2023-12-06 18:38] LABS: BILIRUBIN,URINE NEGATIVE (Neg); CLARITY,URINE CLEAR (Clear); COLOR,URINE STRAW (Yellow); GLUCOSE, URINE NEGATIVE (Neg); KETONES,URINE NEGATIVE (Neg); LEUKOCYTE ESTERASE ,URINE NEGATIVE (Neg); NITRITES, URINE NEGATIVE (Neg); OCCULT BLOOD,URINE NEGATIVE (Neg); PH,URINE 6.5 (4.8-8.0); PROTEIN,URINE NEGATIVE (Neg); UROBILINOGEN,URINE 0.2 E.U/dL (0.2-1.0)
[2023-12-06 18:44] LABS: UA COLLECTION TYPE VOIDED
[2023-12-06 19:00] VITALS: PULSE 105; O2SAT 99
[2023-12-06 19:49] VITALS: BP 155/70; RESP 18
== END 2023-12-06 19:52 | disposition left against medical advice (07) ==
LOC: ER 11:06
DX: R30.0 Dysuria (principal); M54.2 Cervicalgia; R51.9 Headache, unspecified; Z79.899 Other long term (current) drug therapy; Z79.2 Long term (current) use of antibiotics
CPT/HCPCS: 36415; 70450; 71045; 72125; 80048; 80305; 80320; 81003; 82550; 82948; 83605; 84145; 84484; 85025; 87040; 93005; 99285

== ENCOUNTER 2024-06-21 17:23 | Emergency (ER) | payer BC ==
[~2024-06-21] VITALS: Ht 170.2 cm; Wt 56.8 kg
[~2024-06-21 17:23] MED LIST changes: -AMIT100T61 PO; +AMIT100T76 PO
[2024-06-21 20:30] LABS: BASOPHILS % (AUTO) 0.5 % (0-1); EOSINOPHILS % (AUTO) 0.1 % (0-6); HEMATOCRIT 47.3 % (35.0-45.0); HEMOGLOBIN 16.1 g/dl (12.0-16.0); LYMPHOCYTES # (AUTO) 0.9 X10'3 (1.1-4.8); LYMPHOCYTES % (AUTO) 12.7 % (21-51); MEAN CORPUSCULAR HEMOGLOBIN 33.4 PG (27.0-31.0); MEAN CORPUSCULAR HGB CONC 34.1 g/dL (33.0-36.5); MEAN CORPUSCULAR VOLUME 98.1 FL (78-98); MEAN PLATELET VOLUME 7.2 FL (7.4-10.4); MONOCYTES # (AUTO) 0.5 X10'3 (0-0.9); MONOCYTES % (AUTO) 7.2 % (2-12); NEUTROPHILS # (AUTO) 5.7 X10'3 (1.8-7.7); NEUTROPHILS % (AUTO) 79.5 % (42-75); PLATELET COUNT 286 X10'3 (140-440); RED BLOOD COUNT 4.82 X10'6 (4.20-5.60); RED CELL DISTRIBUTION WIDTH 14.6 % (11.5-14.5); WHITE BLOOD COUNT 7.2 X10'3 (4.5-11.0)
[2024-06-21] MEDS ORDERED: cloNIDine 0.1 mg tablet PO ONE (20:30)
[2024-06-21] MEDS ORDERED: ONDA-243 PO (20:34)
[2024-06-21 20:45] LABS: ALANINE AMINOTRANSFERASE 47 U/L (12-78); ALBUMIN 4.5 G/DL (3.4-5.0); BLOOD UREA NITROGEN 16 MG/DL (7-18); BUN/CREATININE RATIO 22.9 (10.0-20.0); CALCIUM 10.4 MG/DL (8.5-10.1); ETHANOL 31 MG/DL (<10); GLUCOSE 133 MG/DL (70-104); LIPASE 32 U/L (16-77); eCRCL 67 ML/MIN; eGFR 83 ML/MIN
[2024-06-21 20:46] LABS: ALKALINE PHOSPHATASE 135 IU/L (46-116); ANION GAP 16 (8-16); ASPARTATE AMINO TRANSFERASE 69 U/L (10-37); BILIRUBIN,TOTAL 0.4 MG/DL (0.1-1.0); CHLORIDE 96 MMOL/L (99-107); POTASSIUM 3.3 MMOL/L (3.5-5.1); SODIUM 142 MMOL/L (135-145)
[2024-06-21] MEDS: diphenhydrAMINE 50 mg/ml inj IM ONE (20:50)
[2024-06-21] MEDS: HYDROcodone/acetaminophen 5mg/325mg tablet PO ONE (20:51)
[2024-06-21] MEDS: dicyclomine 10 MG capsule PO ONE (20:51)
[2024-06-21] MEDS: metoclopramide 5 mg/ml inj IM ONE (20:51)
[2024-06-21 21:14] VITALS: BP 178/71; PULSE 90; RESP 16; TEMP 98.6; O2SAT 99
== END 2024-06-21 21:27 | disposition home or self-care (01) ==
LOC: ER 17:23
DX: F11.23 Opioid dependence with withdrawal (principal); F03.90 Unspecified dementia, unspecified severity, without behavioral disturbance, psychotic disturbance, mood disturbance, and anxiety; Z88.8 Allergy status to other drugs, medicaments and biological substances; Z79.899 Other long term (current) drug therapy; Z98.890 Other specified postprocedural states
CPT/HCPCS: 36415; 80053; 80320; 83690; 85025; 96372; 99284; J1200; J2765